=== PATIENT | female | born 2005 | race Caucasian/White ===

== ENCOUNTER 2024-12-30 15:30 | Emergency (ER) | payer OTHER ==
[~2024-12-30] VITALS: Ht 165.1 cm; Wt 133.3 kg
[2024-12-30] MEDS: ACETAMINOPHEN 325 MG TAB PO ONE (16:11)
[2024-12-30] MEDS: IPRATROPIUM 0.5MG/ALBUTEROL 2.5MG INH SOL UD 3ML NEB ONE (17:34)
[2024-12-30 18:00] VITALS: BP 138/82; TEMP 100.1; O2SAT 99
[2024-12-30] MEDS ORDERED: NEBU1EAC78 MC (18:15)
[2024-12-30] MEDS ORDERED: VENTAER INH (18:15)
[2024-12-30] MEDS ORDERED: BENZ200C70 PO (18:15)
[2024-12-30] MEDS ORDERED: ALBU2.5V10 NEB (18:15)
== END 2024-12-30 18:26 | disposition home or self-care (01) ==
LOC: M ED 15:30
DX: J06.9 Acute upper respiratory infection, unspecified (principal); B34.1 Enterovirus infection, unspecified; Z79.52 Long term (current) use of systemic steroids; Z79.899 Other long term (current) drug therapy